=== PATIENT | female | born 1995 | race Caucasian/White ===

== ENCOUNTER 2022-05-12 12:46 | Emergency (ER) | payer OTHER ==
[~2022-05-12] VITALS: Ht 154.9 cm; Wt 40.8 kg
[2022-05-12] MEDS ORDERED: NORFLEX100MG PO (15:23)
[2022-05-12] MEDS ORDERED: KETO10TA2 PO (15:23)
== END 2022-05-12 18:33 | disposition home or self-care (01) ==
LOC: ER 12:46
DX: R51.9 Headache, unspecified (principal)

== ENCOUNTER 2022-05-22 15:58 | Outpatient (CLI) | payer OTHER ==
[~2022-05-22 15:58] MED LIST: KETO10TA2 PO; NORFLEX100MG PO
== END 2022-05-22 16:04 | disposition home or self-care (01) ==
LOC: RAD 15:58
PROVIDERS: ATTEND Orthopaedic Surgery
DX: M25.461 Effusion, right knee (principal)

== ENCOUNTER 2022-07-31 11:34 | Emergency (ER) | payer OTHER ==
[~2022-07-31] VITALS: Ht 154.9 cm; Wt 40.4 kg
[2022-07-31] MEDS ORDERED: KAPVAY0.1 MG PO (11:45)
[2022-07-31] MEDS ORDERED: DROSP-EE-LEVOM1 EACH PO (11:45)
== END 2022-07-31 13:13 | disposition home or self-care (01) ==
LOC: ER 11:34
DX: J11.1 Influenza due to unidentified influenza virus with other respiratory manifestations (principal); Z20.822 Contact with and (suspected) exposure to COVID-19

== ENCOUNTER 2022-11-26 15:42 | Outpatient (CLI) | payer OTHER ==
[~2022-11-26 15:42] MED LIST changes: +DROSP-EE-LEVOM1 EACH PO; +KAPVAY0.1 MG PO
== END 2022-11-26 15:48 | disposition home or self-care (01) ==
LOC: LAB 15:42
PROVIDERS: ATTEND Anesthesiology
DX: Z32.00 Encounter for pregnancy test, result unknown (principal)

== ENCOUNTER 2022-12-19 15:02 | Emergency (ER) | payer OTHER ==
[~2022-12-19] VITALS: Ht 154.9 cm; Wt 42.2 kg
[2022-12-19] MEDS ORDERED: CRYSELLE-28 TA1 EACH PO (15:15)
== END 2022-12-19 18:59 | disposition home or self-care (01) ==
LOC: ER 15:02
DX: M62.830 Muscle spasm of back (principal)

== ENCOUNTER 2022-12-29 10:00 | Outpatient (CLI) | payer OTHER ==
[~2022-12-29 10:00] MED LIST changes: +CRYSELLE-28 TA1 EACH PO
== END 2022-12-29 10:15 | disposition home or self-care (01) ==
LOC: PPH VACUNA 10:00
PROVIDERS: ATTEND Emergency Medicine Pediatric Emergency Medicine
DX: Z23 Encounter for immunization (principal)

== ENCOUNTER 2023-02-03 12:09 | Outpatient (CLI) | payer OTHER | END 2023-02-03 12:58 | disposition home or self-care (01) | LOC: RAD 12:09 | DX: M25.531 Pain in right wrist (principal) ==

== ENCOUNTER 2023-02-27 06:41 | Outpatient (CLI) | payer OTHER ==
[2023-02-27 07:35] LABS: URINE APPEARANCE Clear; URINE BILIRRUBIN Negative (NEGATIVE); URINE BLOOD Small; URINE COLOR Yellow; URINE GLUCOSE Negative (NEGATIVE); URINE LEUKOCYTE Moderate; URINE NITRATE Negative; URINE PROTEIN Negative (NEGATIVE); URINE UROBILINOGEN 0.2 E.U./dl
[2023-02-27 07:40] LABS: INR 0.99; PARTIAL THROMBOPLASTIN TIME 28.8 SECONDS (22.0-34.0); PROTHROMBIN TIME 10.4 SECONDS (9.0-11.5)
[2023-02-27 07:45] LABS: URINE BACTERIA 390.5 uL (0.0-1933); URINE WBC 95.3 uL (0.0-23.2)
[2023-02-27 07:46] LABS: HEMOGLOBIN 14.8 g/dL (12.0-15.00); MEAN CORPUSCULAR HEMOGLOBIN 31.7 pg (27.00-32.0); MEAN CORPUSCULAR HGB CONC 33.7 g/dl (32.0-36.0); PLATELET COUNT 237 K/uL (150-450); RED BLOOD COUNT 4.68 M/uL (4.00-6.00); RED CELL DISTRIBUTION WIDTH 13.6 % (11.5-14.5)
[2023-02-27 07:52] LABS: ALBUMIN 3.8 gm/dL (3.4-5.0); BILIRUBIN TOTAL 1.17 mg/dL (0.3-1.2); CALCIUM 9.1 mg/dL (8.5-10.1); CREATININE SERUM 0.69 mg/dL (0.55-1.02); GFR 103.66; GLOBULINA 4.2 G/DL (2.4-3.5); POTASSIUM 3.68 mEq/L (3.5-5.1)
== END 2023-02-27 06:43 | disposition home or self-care (01) ==
LOC: LAB 06:41
PROVIDERS: ATTEND Orthopaedic Surgery Hand Surgery
DX: E11.9 Type 2 diabetes mellitus without complications (principal); E78.00 Pure hypercholesterolemia, unspecified; E78.3 Hyperchylomicronemia; D65 Disseminated intravascular coagulation [defibrination syndrome]; D66 Hereditary factor VIII deficiency; N39.0 Urinary tract infection, site not specified

== ENCOUNTER 2023-03-10 05:15 | Day surgery (SDC) | payer OTHER | END 2023-03-10 13:30 | disposition home or self-care (01) | LOC: CIR.AMB 05:15 | PROVIDERS: ATTEND Orthopaedic Surgery Hand Surgery | DX: S63.301A Traumatic rupture of unspecified ligament of right wrist, initial encounter (principal); Z20.822 Contact with and (suspected) exposure to COVID-19 ==

== ENCOUNTER 2024-01-25 15:45 | Outpatient (CLI) | payer OTHER | END 2024-01-25 15:47 | disposition home or self-care (01) | LOC: LAB 15:45 | PROVIDERS: ATTEND Obstetrics & Gynecology | DX: O02.81 Inappropriate change in quantitative human chorionic gonadotropin (hCG) in early pregnancy (principal) ==

== ENCOUNTER 2024-03-07 14:45 | Outpatient (CLI) | payer OTHER | END 2024-03-07 14:55 | disposition home or self-care (01) | LOC: PPH VACUNA 14:45 | PROVIDERS: ATTEND Emergency Medicine Pediatric Emergency Medicine | DX: Z23 Encounter for immunization (principal) ==

== ENCOUNTER 2024-05-09 06:22 | Outpatient (CLI) | payer OTHER ==
[2024-05-09 07:27] LABS: HEMATOCRIT 38.1 % (36.0-45.00); HEMOGLOBIN 12.8 g/dL (12.0-15.00); MEAN CELL VOLUME 91.4 fL (80.00-100.00); MEAN CORPUSCULAR HEMOGLOBIN 30.7 pg (27.00-32.0); MEAN CORPUSCULAR HGB CONC 33.6 g/dl (32.0-36.0); PLATELET COUNT 175 K/uL (150-450); RED BLOOD COUNT 4.17 M/uL (4.00-6.00); RED CELL DISTRIBUTION WIDTH 13.8 % (11.5-14.5)
[2024-05-09 07:43] LABS: PH,URINE 5.5 (5.0-8.0); URINE APPEARANCE Clear; URINE BILIRRUBIN Negative (NEGATIVE); URINE BLOOD Negative; URINE COLOR Yellow; URINE GLUCOSE Negative (NEGATIVE); URINE KETONE Negative (NEGATIVE); URINE LEUKOCYTE Negative; URINE NITRATE Negative; URINE PROTEIN Negative (NEGATIVE); URINE UROBILINOGEN 0.2 E.U./dl
[2024-05-09 07:47] LABS: URINE BACTERIA 13.4 uL (0.0-1933); URINE CAST 0.44 uL (0.0-1.40); URINE EPITHELIAL CELLS 4.7 uL (0.0-38.8); URINE RBC 9.5 uL (0.0-20.8); URINE WBC 3.6 uL (0.0-23.2)
[2024-05-09 08:22] LABS: ALBUMIN 3.6 gm/dL (3.4-5.0); BILIRUBIN TOTAL 1.3 mg/dL (0.3-1.2); CALCIUM 9.1 mg/dL (8.5-10.1); CREATININE SERUM 0.56 mg/dL (0.55-1.02); GFR 130.86; GLOBULINA 3.3 G/DL (2.4-3.5); POTASSIUM 3.68 mEq/L (3.5-5.1); T4 FREE 1.03 NG/ML (0.76-1.46); TOTAL PROTEIN 6.9 gm/dL (6.4-8.2); TSH 1.68 uIU/mL (0.358-3.74)
[2024-05-10 06:04] LABS: FOLLICLE STIMULATING HORMONE 6.1 mIU/mL (.); LEUTEINIZING HORMONE 18.6 mIU/mL (.); PROLACTIN 31.7 ng/mL (4.8-33.4)
== END 2024-05-09 06:26 | disposition home or self-care (01) ==
LOC: LAB 06:22
PROVIDERS: ATTEND Obstetrics & Gynecology
DX: D50.9 Iron deficiency anemia, unspecified (principal); E55.9 Vitamin D deficiency, unspecified; E03.9 Hypothyroidism, unspecified; N39.0 Urinary tract infection, site not specified

== ENCOUNTER 2024-05-20 13:03 | Outpatient (CLI) | payer OTHER | END 2024-05-20 13:04 | disposition home or self-care (01) | LOC: SONOGRAMA 13:03 | PROVIDERS: ATTEND Obstetrics & Gynecology | DX: E03.9 Hypothyroidism, unspecified (principal); R10.2 Pelvic and perineal pain ==

== ENCOUNTER 2024-06-16 10:20 | Emergency (ER) | payer OTHER ==
[~2024-06-16] VITALS: Ht 154.9 cm; Wt 40.8 kg
[2024-06-16] MEDS ORDERED: TRAMADOL HCL 50 MG TABLET PO ONE (11:15)
[2024-06-16] MEDS ORDERED: KETO10TA2 PO (12:34)
== END 2024-06-16 12:42 | disposition home or self-care (01) ==
LOC: ER 10:22
DX: S69.81XA Other specified injuries of right wrist, hand and finger(s), initial encounter (principal); X58.XXXA Exposure to other specified factors, initial encounter; Y93.89 Activity, other specified; Y92.69 Other specified industrial and construction area as the place of occurrence of the external cause; Y99.8 Other external cause status; M79.641 Pain in right hand

== ENCOUNTER 2025-01-19 12:23 | Emergency (ER) | payer OTHER ==
[~2025-01-19] VITALS: Ht 154.9 cm; Wt 40.8 kg
[2025-01-19] MEDS ORDERED: 0.9 % SODIUM CHLORIDE 1,000 ML IV ONE (14:45)
[2025-01-19 15:05] LABS: URINE APPEARANCE Clear; URINE BILIRRUBIN Negative (NEGATIVE); URINE BLOOD Trace; URINE COLOR Yellow; URINE GLUCOSE Negative (NEGATIVE); URINE KETONE Negative (NEGATIVE); URINE LEUKOCYTE Negative; URINE NITRATE Negative; URINE PROTEIN Negative (NEGATIVE); URINE UROBILINOGEN 0.2 E.U./dl
[2025-01-19 15:09] LABS: URINE BACTERIA 9.5 uL (0.0-1933); URINE EPITHELIAL CELLS 5.0 uL (0.0-38.8); URINE RBC 10.5 uL (0.0-20.8); URINE WBC 4.7 uL (0.0-23.2)
[2025-01-19 15:30] LABS: URINE CAST 0.29 uL (0.0-1.40)
[2025-01-19 15:42] LABS: BASO % 0.4 % (0.1-1.2); EOS # 0.09 (0.04-0.54); EOS % 1.1 % (0.7-7.0); LYMPH # 1.55 (1.18-3.74); LYMPH % 18.3 % (19.3-53.1); MEAN PLATELET VOLUME 9.80 fl (9.4-12.4); MONO # 0.48 (0.24-0.82); MONO % 5.7 % (4.7-12.5); NEUT # 6.28 (1.56-6.13); NEUT % 74.3 % (34.0-71.1); RED CELL DISTRIBUTION WIDTH 13.1 % (11.6-14.4)
[2025-01-19 16:10] LABS: INR 1.0
[2025-01-19 16:26] LABS: ALT/SGPT 21.0 U/L (12-78); AST/SGOT 13.0 U/L (15-37); BILIRUBIN TOTAL 0.71 mg/dL (0.3-1.2); BUN CREA RATIO 12.0 (7.0-25.0); CREATININE SERUM 0.66 mg/dL (0.55-1.02); GFR 107.43; GLOBULINA 4.3 G/DL (2.4-3.5); GLUCOSE FASTING 128.0 mg/dL (65-100); OSMOLALITY SERUM 279.0 MOSM/KG (275-295); PHOSPHOKINASE CREATININE 75.0 U/L (26-192)
[2025-01-19 16:45] LABS: TSH 0.345 uIU/mL (0.358-3.74)
== END 2025-01-19 20:56 ==
LOC: ER 12:24
PROVIDERS: General Practice
DX: R55 Syncope and collapse (principal); I95.9 Hypotension, unspecified; S30.0XXA Contusion of lower back and pelvis, initial encounter; W18.39XA Other fall on same level, initial encounter; Y93.89 Activity, other specified; Y92.89 Other specified places as the place of occurrence of the external cause; Y99.9 Unspecified external cause status